=== PATIENT | female | born 1995 | race Caucasian/White ===

== ENCOUNTER 2020-05-09 16:27 | Outpatient (CLI) | payer OTHER, BC, SELFPAY ==
--- NOTE | ~2020-05-09 | US_ITS ---
EXAMINATION: US pelvic complete w TV DATE: 05/09/2020 17:09 INDICATION: Pelvic pain TECHNIQUE: Multiple transabdominal and endovaginal sonographic images of the pelvis were obtained. COMPARISON: None. FINDINGS: The uterus measures 7.4 x 2.9 x 4.5 cm. The endometrial complex measures 3 mm. The right ov ina measures 2.3 x 2.8 x 2.5 cm. The left ovary measures 2.4 x 2.0 x 0.9 cm. There is normal vascular flow in the ovaries. There is no free fluid in the pelvis. IMPRESSION: 1. No sonographic correlate for the patient's symptoms. Reviewed, dictated and finalized at location A. [employer]
== END 2020-05-09 16:28 | disposition home or self-care (01) ==
PROVIDERS: Visit Provider Obstetrics & Gynecology
DX: R10.2 Pelvic and perineal pain (principal)
CPT/HCPCS: 76830; 76856

== ENCOUNTER 2022-10-11 15:08 | Outpatient (CLI) | payer OTHER, SELFPAY ==
[2022-10-11 20:22] LABS: Thyroid Stimulating Hormone 0.838 uIU/mL (0.465-4.680)
== END 2022-10-11 15:09 | disposition home or self-care (01) ==
LOC: ANHGOSHLAB 15:09
PROVIDERS: PCP Family Medicine; Visit Provider Family Medicine
DX: R63.5 Abnormal weight gain (principal)
CPT/HCPCS: 36415; 84443

== ENCOUNTER 2024-08-25 09:24 | Outpatient (CLI) | payer BC, SELFPAY ==
--- OUTSIDE RECORDS SUMMARY | 2024-08-25 09:27 | XMS_ITS | Encounter Summary ---
Author Organization [facility] Address [address] [place] [address] Phone Care Team Providers Care Ruling Technician Name Role Phone Corby Chappell MD Primary Care Provider [phone] No, Physician Primary Care Provider [phone] Corby Chappell MD Unavailable [phone] Corby Chappell MD Primary Care Provider [phone] Encounter Details Date Type Department Care Team (Late st Contact Info) Description 09/04/2020 Orders Only [facility] Scanning, Provider Social History Tobacco Use Types Packs/Day Years Used Date Smoking Tobacco: Never Smokeless Tobacco: Never Alcohol Use Standard Drinks/Week Comments Yes 0 (1 standard drink = 0.6 oz pur e alcohol) occ AUDIT-C Answer Date Recorded Q1: How often do you have a drink containing alc ohol? 2-4 times a month 07/21/2020 Q2: How many drinks containi ng alcohol do you have on a typical day when you are drinking? 1 or 2 07/21/2020 Q3: How often do you have si x or more drinks on one occasion? Never 07/21/2020 Comments No Sex and Gender Information Value Date Recorded Sex Assigned at Not on file Legal Sex Female 4:17 AM [employer] LEAD[employer] Gender Identity Female 09/19/2019 3:42 PM CDT Sexual Orientation Not on file documented as of this encounter Plan of Treatment Not on file documented as of this encounter Procedures Procedure Name Priority Date/Time Associated Diagnosis Comments SCAN - LABS 09/04/2020 documented in this encounter Results * SCAN - LABS (09/04/2020) us Provider Scanning Final Result documented in this encounter Visit Diagnoses Not on filedocumented in this encounter Additional Health Concerns Infection Onset Date Last Indicated Resolved Time COVID: Suspected 05/23/2024 05/23/2024 05/23/2024 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
--- OUTSIDE RECORDS SUMMARY | 2024-08-25 09:27 | XMS_ITS | Referral Summary ---
Author Organization [facility] Address [address] [place] [address] Care Team Providers Care Beef Skinner Name Role Phone Corby Chappell MD Unavailable [phone] Corby Chappell MD Primary Care Provider [phone] Encounters Date Type Department Care Team Description 07/24/2024 10:15 AM CDT Office Visit [facility] [address] [facility] [address] [place] [address] Sonia Ronquillo NP Encounter for routine follow-up (Primary Dx) 07/16/2024 2:00 PM CDT Infusion [facility] [address] [facility] Advanced Medicine 5th [place] [address] [place] [phone] Ulcerative colitis with complication, unspecified location (HCC) (Primary Dx) 07/11/2024 11:11 PM CDT - 07/14/2024 1:12 PM CDT Hospital Encounter [facility] 1 [place] [phone] Xiao Lomax MD Gray-Swain, Margaret Rosanna, MD Encounter for induction of labor [Z34.90] (Primary Dx); Ulcerative colitis in remission (HCC) [K51.90]; Second degree perineal laceration [O70.1]; Vaginal delivery [O80] Discharge Disposition: Discharge to home or self care 07/13/2024 Telephone [facility] [address] [address] Federica Dalton MD 07/12/2024 7:36 AM CDT Anesthesia Event [facility] 1 [place] [address] Ambar Gan MD Rybak, Michael Robert, CRNA 07/10/2024 Telephone [facility] 1 [place] [address] Esther Conteh, MARIFER Outgoing Call (Pre procedure IOL call) 07/10/2024 7:28 AM CDT - 07/10/2024 9:35 AM CDT Hospital Encounter [facility] 1 [place] [address] Federica Dalton MD Discharge Disposition: Discharge to home or self care 07/03/2024 Documentation [facility] [address] [facility] [place] [facility] Medicine 12th [place] [address] [place] [address] Jyoti Blair, MARIFER Treatment Plan Update (07/03/2024 rov) 07/03/2024 10:30 AM CDT Office Visit [facility] [address] [facility] 12th [place] [address] [place] [address] Iesha Dunlap MD High risk medications (not anticoagulants) long-term use (Primary Dx); Ulcerative colitis with complication, unspecified location (HCC) 07/03/2024 8:00 AM CDT Procedure visit [facility] [address] [place] [phone] High-risk in third trimester (Primary Dx) 07/03/2024 8:30 AM CDT Routine [facility] [address] [place] [phone] Katelyn Razo, RECEIVING TANK OPERATOR Dr Dalton (Primary Dx) 06/29/2024 Results Follow-Up [address] [phone] Trisha Perry MD 06/26/2024 12:13 PM CDT - 06/26/2024 11:59 PM CDT Hospital Encounter [address] [address] [address] Dalton Discharge Disposition: Discharge to home or self care 06/26/2024 8:00 AM CDT Procedure visit [address] [phone] High risk medications (not anticoagulants) long-term use [Z79.899] (Primary Dx); Ulcerative colitis with complication, unspecified location (HCC) [K51.919] 06/26/2024 8:30 AM CDT Routine [address] [phone] Dalton (Primary Dx); Screening for genetic disease carrier status; High-risk in third trimester; High risk medications (not anticoagulants) long-term use; Anxiety disorder, unspecified type 06/19/[address] [phone] Federica Dalton MD 06/19/2024 8:00 AM SEARCH ENGINE MARKETING SPECIALIST Procedure visit [address] [phone] Obesity affecting in third trimester, unspecified obesity type [O99.213] (Primary Dx); Ulcerative pancolitis with complication (CMS/HCC) (HCC) [K51.019] 06/19/2024 8:15 AM SEARCH ENGINE MARKETING SPECIALIST Routine [address] [phone] Federica Dalton MD High-risk in third trimester (Primary Dx); Dr Dalton 06/06/2024 Orders Only [facility] [address] [facility] 12th [place] [address] [place] [address] Iesha Dunlap MD 06/05/2024 8:30 AM SEARCH ENGINE MARKETING SPECIALIST [facility]ine [facility] [address] [place] [address] [address] [place] [phone] Latasha Seaman NP care in third trimester (Primary Dx); Anxiety disorder due to known physiological condition; Ulcerative pancolitis without complication (CMS/HCC) (HCC) [K51.00] 06/04/2024 8:00 AM SEARCH ENGINE MARKETING SPECIALIST Clinical Support [address] [place] [phone] Anxiety disorder due to known physiological condition; Dr Dalton; High risk , antepartum; Ulcerative colitis with complication, unspecified location (HCC) 06/02/2024 10:21 PM SEARCH ENGINE MARKETING SPECIALIST - 06/03/2024 12:58 AM SEARCH ENGINE MARKETING SPECIALIST Hospital Encounter [facility] 1 [place] [address] Xiao Lomax MD Discharge Disposition: Discharge to home or self care 05/28/2024 12:15 PM SEARCH ENGINE MARKETING SPECIALIST Lab [facility] Met[facility] Lipid [address] [facility] 5th [place] [address] [place] [address] Ulcerative colitis with complication, unspecified location (HCC) [K51.919] (Primary Dx) 05/28/2024 9:00 AM SEARCH ENGINE MARKETING SPECIALIST Infusion [facility] [address] 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 chief -kaylan-boron 600 mg calcium- 800 unit-40 mg tablet,chewable Take 1 tablet/chew tab by mouth daily OTC Active PNV with jxkavhn-fmnj-FT 27 mg iron- 1 mg tablet Take 1 tablet by mouth daily 08/21/19 22 Active cholecalciferol (VITAMIN D-3) 2000 unit capsule Take 1 capsule (2,000 Units total) by mouth daily 90 capsule 3 09/17/19 23 Active promethazine (PHENERGAN) 25 mg tablet Take 1 tablet (25 mg total) by mouth every 6 (six) hours as needed for nausea 30 tablet 1 12/08/19 24 Active Additional Information Patient not taking.Reported on 07/24/2024 aspirin 81 mg enteric coated tablet Take 1 tablet (81 mg total) by mouth daily 30 tablet 11 12/27/19 24 025 Active Additional Information Patient not taking.Reported on 07/24/2024 ondansetron ODT (ZOFRAN-ODT) 8 mg disintegrating tablet Take 1 tablet (8 mg total) by mouth every 8 (eight) hours as needed for nausea 20 tablet 1 05/23/19 25 Active Additional Information Patient not taking.Reported on 07/24/2024 sertraline (ZOLOFT) 100 mg tabletIndications: Generalized Anxiety Disorder Take 1 tablet (100 mg total) by mouth daily 90 tablet 1 05/24/19 25 Active famotidine (PEPCID) 20 mg tablet Take 1 tablet (20 mg total) by mouth 2 (two) times a day 60 tablet 11 05/24/19 25 026 Active Additional Information Patient not taking.Reported on 07/24/2024 acetaminophen 500 mg capsuleIndications :Pain Take 2 capsules (1,000 mg total) by mouth every 6 (six) hours 60 tablet 3 07/15/19 25 Active gabapentin (NEURONTIN) 300 mg capsule Take 1 capsule (300 mg total) by mouth 3 (three) times a day 60 capsule 3 07/15/19 25 025 Active Additional Information Patient not taking.Reported on 07/24/2024 polyethylene glycol (MIRALAX) 17 gram/dose bulk powderIndications: constipation Take 17 g by mouth daily 517 g 07/15/19 25 Active mesalamine (LIALDA) 1.2 gram EC tabletIndications: Ulcerative Colitis Take 4 tablets (4.8 g total) by mouth daily 120 tablet 2 08/24/19 25 Active mesalamine (LIALDA) 1.2 gram EC tabletIndications: Ulcerative Colitis Take 4 tablets (4.8 g total) by mouth daily 120 tablet 11 11/21/19 24 025 Discontin ued(Reord er) Active Problems Problem Noted Date Diagnosed Date Encounter for routine follow-up 07/12 Overview (07/14/2024): # ID: Afebrile. No signs/symptoms of infection. #VZV unknown: PNR with report of chickenpox as a child # Heme: EBL 150 mL. Hemodynamically stable. Blood consent obtained # CV/Pulm: Vital signs stable, within normal limits. # GI/: Tolerating PO. Voiding spontaneously. #Ulcerative colitis - extensive (E3), had EBV in 2012. Current regimen - Entyvio every 8 weeks (started 03/2018) , mesalamine (restarted November 2023). No prior abdominal surgeries. Colonoscopy 11/2022 with 5 hyperplastic polyps removed. Avoid NSAIDs PP. # Psych #anxiety- zoloft increased to 100mg daily in 3T, mood otherwise stable. Doing well PPD2, good mood. # Pain: Controlled with above regimen. # MOC: To discuss at pp visit . # MOF: . Urine drug screen not indicated. Patient informed of results: N/A. # Post DVT prophylaxis: The patient has the following MAJOR risk factors none and the following MINOR risk factors BMI 30-39. SCDs ordered for VTE prophylaxis. # Disposition: Follow up task not sent. Continue routine care. Service Coverage These phones are service phones and carried 08/11 in house: R1 (first call) [phone] R1 alt (second call) [phone] R4 (Chief) [phone] Second degree perineal laceration 07/12/2024 Vaginal delivery 07/12/2024 Ulcerative colitis in remission 07/12/2024 Encounter for induction of labor 07/11/2024 Overview (07/12/2024): Olga Maloney is a 29 y.o. female at 39w0d who is dated by L=1 and is being admitted for an elective induction of labor. Admit to L&D: Labs: CBC and T&S pending. Induction of labor with misoprostol and CC . FWB: Continuous monitoring. Reactive NST. ID: 3rd trimester HIV (>28 wga) negative on 04/17/24. GBS negative on 06/26/24 . RPR on admission: pending. History of genital HSV or HSV 1/2 seropositivity: No. Membrane Status: intact. Indications for UDS: none. Verbal consent obtained for UDS: Not indicated. MOF: Plans to breastfeed. Urine drug screen not indicated. Patient informed of results: N/A. MOC: Undecided on contraception after counseling. Will reassess at 6wk visit Pain management: Desires epidural. Post DVT prophylaxis: The patient has the following MAJOR risk factors active inflammatory bowel disease and the following MINOR risk factors BMI 30-39 and parity >/=3. enoxaparin 40 mg daily will be ordered for VTE prophylaxis . Other: #anxiety- zoloft increased to 100mg daily in 3T, mood otherwise stable. For peds at delivery for SSRI #Ulcerative colitis - extensive (E3), had EBV in 2012. Current regimen - Entyvio every 8 weeks (started 03/2018) , mesalamine (restarted November 2023). No prior abdominal surgeries. Colonoscopy 11/2022 with 5 hyperplastic polyps removed. Diarrhea of infectious origin 05/23/2024 Screening for genetic disease carrier status Overview (01/09/2024): REPORT SUMMARY Negative Comment: Negative for 4 out of 4 diseases. CYSTIC FIBROSIS Negative DUCHENNE/SOLO MUSCULAR DYSTROPHY Negative FRAGILE X SYNDROME Negative Comment: NEGATIVE Fragile X Syndrome results 30 and 30 CGG repeats were detected in the FMR1 genes. SPINAL MUSCULAR ATROPHY Negative Comment: NEGATIVE Spinal Muscular Atrophy (SMA) Results SMN1: Two copies; [id number].[id number]>G: absent; the absence of the g.62662Q>G variant decreases the chance to be a silent (2+0) carrier. Dr Dalton 12/28/2023 Overview (06/19/2024): Initial Labs: Lab Results Component Value Date ABORH O Positive 12/28/2023 IDCOOMB Negative 12/28/2023 [id number] Nonreactive 12/28/2023 LABRPR Nonreactive 12/28/2023 RUBELIGG Reactive 12/28/2023 Lab Results Component Value Date HEPBSAG Nonreactive 12/28/2023 HEPCAB Nonreactive 12/28/2023 Lab Results Component Value Date WBC 13.8 (H) 12/28/2023 HGB 12.6 12/28/2023 HCT 39.1 12/28/2023 MCV 91.6 12/28/2023 LABPLAT 261 12/28/2023 Urine culture( x ) Carrier Screening offered (x ) Horizon 4 sent Aneuploidy screening counseling and testing offered (x ):NIPT sent: LR XX/rgs Midtrimester Labs Lab Results Component Value Date [id number] 106 04/17/2024 Lab Results Component Value Date HGB 11.7 (L) 04/16/2024 LABPLAT 218 04/16/2024 Lab Results Component Value Date [id number] Nonreactive 04/17/2024 LABRPR Nonreactive 04/17/2024 Lab Results Component Value Date WBC 8.9 05/24/2024 HGB 12.0 05/24/2024 HCT 37.8 05/24/2024 MCV 92.9 05/24/2024 LABPLAT 213 05/24/2024 Lab Results Component Value Date TSH 1.27 05/24/2024 ulcerative colitis in : WEOB RGS 2023 Overview (05/24/2024): Year of diagnosis: 2011. Year symptoms began: 2011. Distribution: Extensive (E3). Extraintestinal manifestations: none. Complications: EBV in 2012 Prior treatments: 5ASA.mercaptopurine, AZA-EBV in 2012 Current treatment: Entyvio every 8 weeks (started 03/2018) , mesalamine. Prior surgeries: none. Endoscopies: Colonoscopy 11/2022 .Normal mucosa in the entire examined colon. Chromoscopy performed. - Five small polyps in the sigmoid colon, removed with a cold biopsy forceps. Resected and retrieved. PATH: Sigmoid colon, polyps, polypectomies: - Hyperplastic polyps Colonoscopy 11/2021 Normal mucosa in the entire examined colon. Chromoscopy performed. - No specimens collected. Flex sig 2020 The entire examined colon is normal. - No specimens collected Colonoscopy 10/2018 Normal mucosa in the entire examined colon. - The examined portion of the ileum was normal. - The distal rectum and anal verge are normal on retroflexion view. - No specimens collected. The patient had a colonoscopy done in 2012 while on Apriso that demonstrated patchy disease activity, and ultimately in November 2014, she was transitioned back to mercaptopurine. The patient had a normal MRE in February 2015, and a colonoscopy in 2016 demonstrated mucosal remission. MRI 2014 Normal MR enterography without evidence of inflammation . flare and add in mesalamine Initial additional labs - ordered 01/24/24: ( x) B12 ( ) Vit D ( )folate ( )ferritin ( )CMP Lab Results Component Value Date VITB12 301 01/24/2024 IRON 68 04/16/2024 IRON 97 04/13/2023 TIBC 369 04/16/2024 TIBC 256 04/13/2023 FOLATE >20.0 04/17/2024 FOLATE >20.0 01/24/2024 25HYDROVITD 40 01/24/2024 25HYDROVITD 45 11/27/2019 25HYDROVITD 47 10/04/2019 FERRITIN 13.4 04/16/2024 FERRITIN 55 01/24/2024 FERRITIN 46.4 04/13/2023 FERRITIN 3375 (H) 02/17/2013 Lab Results Component Value Date IRON 38 05/24/2024 TIBC 254 05/24/2024 FERRITIN 46 05/24/2024 qtrimester repeat B12, ferritin, folate and vit D levels ( x) second tri ( x ) third tri Imaging/ surveillence (x) 11-13 dating/viability scan (first look if indicated) ( x ) level 2 anatomy scan 19-21 weeks - ordered ( x ) serial growth scans q4 weeks starting at 26 weeks ( ) NST 2 per week start at 32-36 weeks if FGR Consults: ( ) MFM ( ) nutrition if poor weight gain Delivery: 39 weeks Counseling tips: Outcomes are best if disease in remission for 6 months prior to conception. If active disease at time of conception there is are increased risks for flare, spontaneous , delivery, growth restriction and demise. For UC if active disease at conception 45% have a flare in , 24% stable and 25% improve. If Crohn's 1/3 have flare, 1/3 are stable and 1/3 improve. If and on 6-MP/azathioprine should wait 4 hours after dose to minimize exposure Share with pt: https://mothertobaby.org/pjpgtkpuh-aennsiyrscpli-mzakvfubf/grtbrauvwznt-tfefr-ks sease / Anxiety disorder 06/06/2023 Overview (05/24/2024): Zoloft in preg. Here is some useful information about sertraline use in : https://motherApaja.org/fact-sheets/ywomqdokma-rvmupb-sjkhtnvdu/ 05/24/24 05/24/24 increase zoloft [id number] to 100mg GAD7 sent today and for 2 week repeat Lab Results Component Value Date TSH 1.27 05/24/2024 High risk medications (not anticoagulants) long- term use 01/11/2018 Assessment & Plan (01/07/2024 6:59 AM CDT): The patient is encouraged to continue Entyvio through and Ulcerative colitis 09/13/2012 Overview (01/07/2024): Year of diagnosis: 2011. Year symptoms began: 2011. Distribution: Extensive (E3). Extraintestinal manifestations: none. Complications: EBV in 2012 Prior treatments: 5ASA.mercaptopurine, AZA-EBV in 2012 Current treatment: Entyvio every 8 weeks (started 03/2018) , mesalamine (restarted November 2023). TDM: vedo 13.9, on Q8W Prior surgeries: none. Endoscopies: Colonoscopy 11/2022 .Normal mucosa in the entire examined colon. Chromoscopy performed. - Five small polyps in the sigmoid colon, removed with a cold biopsy forceps. Resected and retrieved. PATH: Sigmoid colon, polyps, polypectomies: - Hyperplastic polyps Colonoscopy 11/2021 Normal mucosa in the entire examined colon. Chromoscopy performed. - No specimens collected. Flex sig 2020 The entire examined colon is normal. - No specimens collected Colonoscopy 10/2018 Normal mucosa in the entire examined colon. - The examined portion of the ileum was normal. - The distal rectum and anal verge are normal on retroflexion view. - No specimens collected. The patient had a colonoscopy done in 2012 while on Apriso that demonstrated patchy disease activity, and ultimately in November 2014, she was transitioned back to mercaptopurine. The patient had a normal MRE in February 2015, and a colonoscopy in 2016 demonstrated mucosal remission. Imaging: MRI 2014 Normal MR enterography without evidence of inflammation . Assessment & Plan (01/07/2024 7:00 AM CDT): The patient is doing in her early 2nd trimester. Her recent calprotectin was reassuring. Her trough level is low. To prevent flare due to low levels, Dr. Dunlap would like to shorten her interval. The patient believes monthly infusions would be very inconvenient and would prefer to try every 6 week infusions 1st. We will submit for this. We will continue to monitor her labs. If she develops increased symptoms during , we will repeat her calprotectin We will likely repeat her colonoscopy for surveillance after delivery in 2024 Assessment & Plan (04/27/2021 2:42 PM SEARCH ENGINE MARKETING SPECIALIST): Ulcerative pancolitis, with symptoms that began in 2011 with left lower quadrant pain, diarrhea, and hematochezia. The patient had evidence of gerber-colitis with sparing of the terminal ileum and was initially treated with Apriso with persistent disease. Eventually, azathioprine was added in October 2012, but the patient subsequently was admitted with acute EBV infection in January 2013 and was then transitioned back to Apriso, but then had multiple flares on monotherapy with Apriso requiring prednisone as well as Uceris. The patient had a colonoscopy done in 2012 while on Apriso that demonstrated patchy disease activity, and ultimately in November 2014, she was transitioned back to mercaptopurine. The patient had a normal MRE in February 2015, and a colonoscopy in 2016 demonstrated mucosal remission. 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 She had a repeat flexible sigmoidoscopy on 07/21/2020 that was consistent with remission. Her Entyvio trough level on 12/25/2020 was adequate at 15 Resolved Problems Problem Noted Date Diagnosed Date Resolved Date Bleeding in early /PUL 09/13/2023 12/08/2023 Overview (09/13/2023): 09/13/23 ultrasound: Indication: bleeding in early , SAB Exam: Transvaginal Uterine position: Retroverted GA by lmp 07/28/23 6w5d MAURICIO 05/03/23 Uterus size in cm: 6.4 x 4.2 x 5.1 Endometrium in mm: 7.9 Right Ovary size in cm: 3.5 x 2.3 x 1.6 Cyst present: hemorrhagic appearing Size of cyst in mm: 20 x 11 x 16 Left Ovary size in cm: 3 x 1.3 x 0.9 Free Fluid: no Terminal Make Up Operator impression: No evidence of IUP seen on today's exam. Uterus and ovaries appear normal. Adnexa is unremarkable. No free fluid seen. Serial HCGs pending IUD contraception 06/30/2021 05/04/2022 Overview (06/30/2021): Seanena -2021 High risk medication use 08/17/201611/2023 Immunizations Immunization Administration Dates Next Due Influenza, Quadrivalent, Daija l Culture-based MDCK, Preservative Free, Antibiotic Free, Intramuscular 03/10/2022,01/25/2019 Influenza, Quadrivalent, Spl it, Preservative Free, Intramuscular 01/17/2021,12/31/2019,01/19/2018,12/09,01/08/2017 Influenza, Trivalent, Preser vative Free, Intramuscular 02/23/2024,01/29/2014,04/03/2013 MMR 01/08/2017 PPD TEST 01/12/2018 Pfizer SARS-CoV-2 Monovalent Vaccination (12+ Yrs) VAZQUEZ-READY TO USE 08/20/2021 Pfizer Sars-Cov-2 Bivalent V accination (12+ YRS) 12/13/2022 Pneumococcal Conjugate PCV 13 08/18/2016 Pneumococcal Polysaccharide PPV23 07/08/2017 Tdap 05/08/2024 ZOSTER Recombinant 06/29/2022,03/10/2022 Social History Tobacco Use Types Packs/Day Years Used Date Smoking Tobacco: Never Smokeless Tobacco: Never Alcohol Use Standard Drinks/Week Comments Yes 0 (1 standard drink = 0.6 oz pur e alcohol) occ Social Connection and Isolat ion Panel [NHANES] Answer Date Recorded In a typical week, how many times do you talk on the phone with family, friends, or neighbors? More than three times a week 07/13/2024 How often do you get togethe r with friends or relatives? More than three times a week 07/13/2024 How often do you attend chur ch or yazdanism services? 1 to 4 times per year 07/13/2024 Do you belong to any clubs o r organizations such as confucianist groups, unions, fraternal or athletic groups, or school groups? Yes 07/13/2024 How often do you attend meet ings of the clubs or organizations you belong to? More than 4 times per year 07/13/2024 Are you , , di vorced, , never , or living with a partner? 07/13/2024 AUDIT-C Answer Date Recorded Q1: How often do you have a drink containing alc ohol? Never 05/24/2024 Average Number of Drinks Not on file 025 Q3: How often do you have si x or more drinks on one occasion? Less than monthly 05/24/2024 Overall Financial Resource Strain (CARDIA) Answe r Date Recorded How hard is it for you to pa y for the very basics like food, housing, medical care, and heating? Not very hard 07/13/2024 [facility] ional [facility] - Occupational Stress Questionnaire Answer Date Recorded Do you feel stress - tense, restless, nervous, or anxious, or unable to sleep at night because your mind is troubled all the time - these days? To some extent 07/10/2024 Hunger Vital Sign Answer Date Recorded Within the past 12 months, y ou worried that your food would run out before you got the money to buy more. Never true 07/14/19 25 Within the past 12 months, t he food you bought just didn't last and you didn't have money to get more. Never true 07/13/2024 PRAPARE - Transportation Answer Date Re corded In the past 12 months, has l ack of transportation kept you from medical appointments or from getting medications? No 06/17 In the past 12 months, has l ack of transportation kept you from meetings, work, or from getting things needed for daily living? No 07/13/2024 [place] Depression Scale Answer Date Recorded [place] Depression Scale Total 10 07/24/2024 The thought of harming myself has occurred to me . Never 07/24/2024 Housing Stability Vital Sign Answer Victor Hugo e Recorded In the last 12 months, was t here a time when you were not able to pay the mortgage or rent on time? No 07/13/2024 In the past 12 months, how m any times have you moved where you were living? 1 07/13/2024 At any time in the past 12 m [facility], were you homeless or living in a custodial (including now)? No 07/13/2024 Personal Safety Answer Date Recorded Have you ever been in or are you currently in a harmful physical or emotional relationship or is someone making you feel afraid or unsafe? 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 Not on file Not on file Not on file Last Filed Vital Signs Vital Sign Reading Time Taken Comments Blood Pressure 118/70 07/24/2024 10:16 AM CDT Pulse 85 07/16/2024 2:07 PM CDT Temperature 36.4 C (97.5 F) 07/14/2024 8:02 AM CDT Respiratory Rate 16 07/16/2024 2:07 PM CDT Oxygen Saturation 99% 07/14/2024 8:02 AM CDT Inhaled Oxygen Concentration - - Weight 95.2 kg (209 lb 12.8 oz) 025 10:16 AM CDT Height 162.6 cm (5' 4 ) 07/24/2024 10:1 6 AM CDT Body Mass Index 36.01 07/24/2024 10:16 AM CDT Plan of Treatment Not on file Procedures Procedure Name Priority Date/Time Associated Diagnosis Comments SURGICAL PATHOLOGY Routine 07/12/2024 2: 22 PM CDT DC AN PROCEDURE PLACEHOLDER Routine 07/12/2024 8:02 AM CDT EGFR STAT 07/12/2024 12:45 AM CDT BASIC METABOLIC PANEL STAT 07/12/2024 12:45 AM CDT CBC WITHOUT DIFFERENTIAL STAT 07/12/2024 12:45 AM CDT TYPE AND SCREEN STAT 07/12/2024 12:45 AM CDT HIV 1/2 ANTIBODY PLUS P24 ANTIGEN Routine 07/12/2024 12:45 AM CDT RPR STAT 07/12/2024 12:45 AM CDT POCT FERN TEST, VAGINAL FLUID [facility] Routine 07/10/2024 8:50 AM CDT POCT URINALYSIS (CLINITEK) Routine 07/10/2024 7:42 AM CDT GROUP B STREPTOCOCCUS CULTURE Routine 06/26/2024 12:[address] Dalton OB FOLLOW UP Schedule Routine, Read Routine (OP Routine) 06/04/2024 8:27 AM SEARCH ENGINE MARKETING SPECIALIST Anxiety disorder due to known physiological condition Dr Dalton High risk , antepartum Ulcerative colitis with complication, unspecified location (HCC) POCT URINALYSIS (CLINITEK) Routine 06/02/2024 11:13 PM SEARCH ENGINE MARKETING SPECIALIST CRP (ACUTE PHASE) Routine 05/28/2024 9:2 1 AM SEARCH ENGINE MARKETING SPECIALIST Ulcerative colitis with complication, unspecified location (HCC) COMPREHENSIVE METABOLIC PANEL Routine 05/28/2024 9:21 AM SEARCH ENGINE MARKETING SPECIALIST Ulcerative colitis with complication, unspecified location (HCC) CBC WITH AUTO DIFFERENTIAL Routine 05/28/2024 9:21 AM SEARCH ENGINE MARKETING SPECIALIST Ulcerative colitis with complication, unspecified location (HCC) HEPATITIS C ANTIBODY Routine 12/28/2023 10:22 AM CDT Encounter for supervision of normal , antepartum, unspecified PAP WITH REFLEX TO HIGH RISK HPV Routine 04/27/2021 3:23 PM SEARCH ENGINE MARKETING SPECIALIST from Last 3 Months or Most Recently Relevant to Health Maintenance Results * Surgical pathology (07/12/2024 2:22 PM CDT) Tissue specimen (specimen) (Placenta) 07/12/2024 2:22 PM CDT 07/13/2024 8:45 AM CDT Narrative PATHOLOGY [facility] - 07/18/2024 1:52 PM CDT EPIC results best viewed via link to PDF [facility] [place] [address] Note to Patients: This report may contain a detailed description of human tissue sent by a health care provider to the laboratory for pathologic evaluation. The content of this report is essential for diagnosis and may provide important critical findings. This information may be unfamiliar to patients to review without a medical professional present. It is advised that the patient review this report in the presence of a health care provider who can answer questions and explain the details. SURGICAL PATHOLOGY REPORT FINAL Patient Name: OLGA MALONEY Gender: F : 1995 (Age: 29) Address: [address] [place] [id number] Hospital #: [id number] Taken:07/12/2024 Received:07/13/2024 Reported: 07/18/2024 Patient Type: [facility] Inpatient Service: Obstetrics Location: [place] [address] Physician(s): DO Federica Crandall M.D. Raymond K. Weber, M.D. Diagnosis: Placenta, vaginal delivery - 417.6 g at 39w0d gestation (appropriate for gestational age) - Trivascular cord and membranes with no histopathologic abnormalities - Villous morphology consistent with stated gestational age [facility]07/18/2024 13:37 By this signature, I attest that the above diagnosis is based upon my personal examination of the slides(and/or other material indicated in the diagnosis). Dash Bowen M.D. Report Electronically Reviewed and Signed Out By Dash Bowen M.D. 07/18/2024 13:52:49 Alondra Randall M.D. History: The patient is a 29 year-old female at 39w0d gestation who presents for an elective induction of labor. Operative procedure: spontaneous vaginal delivery Specimen(s) Received: A: Placenta, third trimester Gross Description: Received in formalin, labeled with the patient s identifiers and Placenta - Dimensions: 417.6 g, 16.7 x 11.6 x 1.9 cm - Membranes: Thin, semitranslucent and nava - Membrane insertion: Marginal - Cord: Attached 25.5 cm in length x 1.2 cm in diameter segment. Detached 24.5 cm in length x 1.3 cm in diameter segment Three vessels Eccentric, 4.0 cm from closest disc margin There are no knots or other lesions - Surface: Blue-vazquez and wrinkled with normal arborization of vessels - Maternal Surface: Intact, red to brown nava with loosely adherent clots - Cut surface: Spongy, red-nava parenchyma with no distinct lesions Summary of sections: A1 membranes and umbilical cord A2-A4 placental disc Jar: 3 [facility]07/16/2024 15:18 Gross Resident:Alondra Randall M.D. PA(s): Cale Rojas M.D. By this signature, I attest that the above diagnosis is based upon my personal examination of the slides(and/or other material). Addenda/Procedures The performance characteristics of some immunohistochemical stains, fluorescence in-situ hybridization tests and immunophenotyping by flow cytometry cited in this report (if any) were determined by the Surgical Pathology and Flow Cytometry Departments at [facility] as part of an ongoing quality assurance clerk program and in compliance with federally mandated regulations drawn from the Clinical Laboratory Improvement Act of 1988 (CLIA '88). Some of these tests rely on the use of analyte specific reagents and are subject to specific labeling requirements by the US Food and Drug Administration. Such diagnostic tests may only be performed in a facility that is certified by the Department of Health and Human Services as a high complexity laboratory under CLIA '88. The FDA has determined that such clearance or approval is not necessary. This test is used for clinical purposes. It should not be regarded as investigational or for research. Nevertheless, federal rules concerning the medical use of analyte specific reagents require that the following disclaimer be attached to the report: This test was developed and its performance characteristics determined by the Surgical Pathology and Flow Cytometry Departments of [facility]. It has not been cleared or approved by the U. S. Food and Drug Administration. IMAGES AND SCANNED DOCUMENTS, IF INCLUDED, ONLY VIEWABLE IN PDF VERSION OF REPORT us Federica Dalton MD LAB PATHOLOGY ORD ERABLES Final Result PATHOLOGY [facility] 3rd Floor [place], [place] [phone] * DC AN PROCEDURE PLACEHOLDER (07/12/2024 8:02 AM CDT) Narrative Brain Keita CRNA - 07/12/2024 8:02 AM CDT Brain Keita CRNA 07/12/2024 8:02 AM Epidural Block Patient location: L&D Reason for block: labor analgesia Staff: Supervising provider: Ambar Gan MD Placed by: CLIENT ENGAGEMENT SPECIALIST: Brain Keita CRNA Procedure prep: Preprocedure checklist: patient identified, procedure contraindications assessed, procedure consent obtained, IV checked, risks, benefits and alternatives discussed, monitors and equipment checked and timeout performed Patient Position: sitting Procedure performed while patient: awake Monitoring: oximetry and blood pressure Prep solution: chlorhexadine/alcohol PPE: provider hat/mask, sterile gloves and sterile drape Skin infiltrated with lidocaine 1%: yes Epidural: Approach: midline Imaging guidance used: no Location: L4-5 Number of attempts:1 Epidural needle: Injection technique: JACK saline Needle type: Tuohy Needle gauge: 17 G Needle length: 9 cm Loss of resistance: 7 cm Catheter: Catheter type: multi-orifice. Catheter at skin depth: 12 cm Negative aspiration of blood: no Negative aspiration of CSF: no Test dose: negative Assessment: Sensory level - left: full eval pending Sensory level - right: full eval pending Events: patient tolerated procedure well with no complications us Ambar Gan MD ANESTHESIA ORDERABLES Carrie l Result * eGFR (07/12/2024 12:45 AM CDT) eGFR >90 >=60 mL/min/1. 73 m2 Comment: Interpretive Data Reference Interval Normal >/= 90 mL/min/1.73m2 Mildly decreased* 60 - 89 mL/min/1.73m2 Mildly to moderately decreased 45 - 59 mL/min/1.73m2 Moderately to severely decreased 30 - 44 mL/min/1.73m2 Severely decreased 15 - 29 mL/min/1.73m2 Kidney Failure < 15 mL/min/1.73m2 *Relative to young adult level Estimated glomerular filtration rate is determined by the 2020 CKD-EPI equation recommended by the National Kidney Foundation (A Unifying Approach to GFR Estimation: Recommendations of the NKF-ASK Task Force on Reassessing the Inclusion of Race in Diagnosing Kidney Disease, JASN 2020). The CKD-EPI equation should not be used for patients with unstable renal function and has not been validated in children and those over 70. Current interpretive data was last reviewed 2021. Blood 07/12/2024 12:4 5 AM CDT 07/12/2024 1:02 AM CDT us Xiao Lomax MD LAB BLOOD ORDERABLES Final Result [facility] Department [place] [address] * HIV 1/2 Antibody plus p24 Antigen Blood (07/12/2024 12:45 AM CDT) HIV 1/2 ab + p24 ag Nonreactive Nonreactive Comment:Nonreactive for HIV- 1 antigen and HIV-1/HIV-2 antibodies. No laboratory evidence of HIV infection. If acute HIV infection is suspected, consider testing for HIV-1 RNA. Current interpretive data was last revised on 21. Blood 07/12/2024 12:4 5 AM CDT 07/12/2024 1:03 AM CDT Xiao Lomax MD LAB MICROBIOLOGY - GENERAL ORDERABLES Final Result Performing Organization Address [facility] de Phone Number [facility] [place] [address] * RPR Blood (07/12/2024 12:45 AM CDT) [facility] RPR Nonreactive Nonreactive Blood 07/12/2024 12:4 5 AM CDT 07/12/2024 1:02 AM CDT Xiao Lomax MD LAB MICROBIOLOGY - GENERAL ORDERABLES Final Result Performing Organization Address [facility] de Phone Number [facility] [place] [address] * (ABNORMAL) CBC without differential (07/12/2024 12:45 AM CDT) [facility] WBC 14.0(H) 3.8 - 9.9 K/cumm Hgb 11.7(L) 11.9 - 15.5 g/dL [facility] Hct 35.5(L) 35.6 - 45.5 % [facility] Plt 200 150 - 400 K/cumm [facility] MPV 11.5 9.1 - 12.3 fL [facility] RBC 4.02 3.90 - 5.20 M/cumm [facility] MCV 88.3 81.3 - 96.4 fL [facility] MCH 29.1 27.1 - 33.3 pg [facility] MCHC 33.0 32.3 - 35.7 g/dL [facility] RDW CV 14.6 11.1 - 14.9 % [facility] RDW SD 46.9 35.7 - 48.1 fL [facility] NRBC abs 0.00 0.00 - 0.01 K/cumm [facility] Blood 07/12/2024 12:4 5 AM CDT 07/12/2024 1:02 AM CDT Xiao Lomax MD LAB BLOOD ORDERABLES Final Result Performing Organization Address [facility] Co de Phone Number [facility] [employer] [place] [address] * Type and screen (07/12/2024 12:45 AM CDT) ABO Rh O Positive Deo, indirect Negative [facility] Blood 07/12/2024 12:4 5 AM CDT 07/12/2024 1:02 AM CDT Narrative [facility] - 07/12/2024 1:57 AM CDT Has the patient had Daratumumab or Isatuximab in the past 6 months?->Unknown Xiao Lomax MD LAB BLOOD BANK TEST ORDERA BLES Final Result Performing Organization Address [facility] [place] [address] * (ABNORMAL) Basic metabolic panel (07/12/2024 12:45 AM CDT) Sodium 136 135 - 145 mmol/L Potassium, pl 4.1 3.3 - 4.9 mmol/L [facility] Chloride 104 97 - 110 mmol/L [facility] CO2 22 22 - 32 mmol/L [facility] Anion gap 10 2 - 15 mmol/L [facility] BUN 11 6 - 25 mg/dL [facility] Creatinine 0.54(L) 0.60 - 1.10 mg/dL [facility] Glucose 89 70 - 199 mg/dL [facility] Comment: Interpretive Data Fasting glucose >/= 126 mg/dl is diagnostic for diabetes. Fasting is defined as no caloric intake for at least 8 hours. Fasting glucose between 100 mg/dl to 125 mg/dl is diagnostic of prediabetes. In a patient with classic symptoms of hyperglycemia or hyperglycemic crisis, a random glucose >/= 200 mg/dl is diagnostic for diabetes. In the absence of unequivocal hyperglycemia, results should be confirmed by repeat testing. The classification and Diagnosis of Diabetes Diabetes Care 2021; 46: S19-S40. Current interpretive data was last revised 2022. Calcium 9.5 8.5 - 10.3 mg/dL [facility] Blood 07/12/2024 12:4 5 AM CDT 07/12/2024 1:02 AM CDT us Xiao Lomax MD LAB BLOOD ORDERABLES Final Result [facility] Department [place] [address] * POCT Fern test, vaginal fluid (07/10/2024 8:50 AM CDT) Fern Test, POC Ferning Absent Ferning Absent Vaginal fluid 07/10/2024 8:5 0 AM CDT us Maria Fernanda Arenas NP POINT OF CARE TEST ORDERA BLES Final Result * (ABNORMAL) POCT urinalysis (Clinitek) (07/10/2024 7:42 AM CDT) Color, ur, POC Yellow Yellow Clarity, UA, POC Clear Clear [facility] Glucose, ur, POC Negative Negative [facility] Bilirubin, ur, POC Negative Negative [facility] Ketones, ur, POC Negative Negative [facility] Specific gravity, ur, POC 1.015 1.010 - 1.025 [facility] Blood, ur, POC Negative Negative [facility] pH, ur, POC 6.5 [facility] Comment: Interpretive Data Urine pH is affected by diet, medications, systemic acid-base disturbances, and renal tubular function. pH may affect urinary stone formation. For example, urine pH below 6.0 may help reduce the tendency for calcium phosphate stones and pH greater than 6.0 may reduce the tendency for uric acid stone formation. Source: [facility]. Last Revised Date: 04-28-2017 Protein, ur, POC Negative Negative [facility] Urobilinogen, ur, POC 0.2 mg/dL mg/dL [facility] Nitrites, ur, POC Negative Negative [facility] Leukocyte esterase, ur, POC 1+(A) Negative [facility] Urine 07/10/2024 7:42 AM CDT 07/10/2024 7:42 AM CDT Federica Dalton MD LAB POCT ORDERABL ES - DEVICE Final Result [facility] Department [place] [address] * Group B streptococcal culture Vaginal/Rectal (06/26/2024 12:31 PM CDT) Report Final Report: Negative Vaginal/Rectal 06/26/2024 12 :31 PM CDT 06/26/2024 1:02 PM CDT Narrative [facility] - 06/29/2024 8:20 AM CDT Testing performed by [facility] ([phone]). Trisha Perry MD LAB MICROBIOLOGY - GENERA L ORDERABLES Final Result Performing Organization Address City/[facility]/ZIP Co de Phone Number [facility] Department [place] [address] * US Ob Follow Up (06/04/2024 8:27 AM SEARCH ENGINE MARKETING SPECIALIST) Amniotic fld 14.9 cm Heart Rate 138 bpm Femur Length 6.75 cm Abdominal Circumference 28.81 cm Head Circumference 31.2 cm Occipitofrontal diameter 11.03 cm Biparietal Diameter 8.45 cm Anatomical Region Laterality Modality Abdomen N/A Ultrasound Narrative 06/04/2024 12:16 PM SEARCH ENGINE MARKETING SPECIALIST Indication: growth , ulcerative colitis Exam: Transabdominal number: 1 position: vertex Placenta location: posterior YUDY: 14.9 cm GA: 33w5d MAURICIO 07/18/24 EFW today: 2255g (5lb0oz) 42%ile AC: 27%ile GA: 34w1d MAURICIO Impression Single vertex 33.5 week fetus. AGA growth patterns. Normal YUDY Limited views of the stomach, kidneys, bladder and diaphragm were visualized and appear normal. Federica Dalton MD us Federica Dalton MD IMG OB US PROCEDU RES Edited Result - Final * (ABNORMAL) POCT urinalysis (Clinitek) (06/02/2024 11:13 PM SEARCH ENGINE MARKETING SPECIALIST) Color, ur, POC Light yellow Clarity, UA, POC Cloudy(A) Clear [facility] Glucose, ur, POC Negative Negative [facility] Bilirubin, ur, POC Negative Negative [facility] Ketones, ur, POC Negative Negative [facility] Specific gravity, ur, POC 1.010 1.010 - 1.025 [facility] Blood, ur, POC Negative Negative [facility] pH, ur, POC 6.0 [facility] Comment: Interpretive Data Urine pH is affected by diet, medications, systemic acid-base disturbances, and renal tubular function. pH may affect urinary stone formation. For example, urine pH below 6.0 may help reduce the tendency for calcium phosphate stones and pH greater than 6.0 may reduce the tendency for uric acid stone formation. Source: [facility]. Last Revised Date: 04-28-2017 Protein, ur, POC Negative Negative [facility] Urobilinogen, ur, POC 0.2 mg/dL mg/dL [facility] Nitrites, ur, POC Negative Negative [facility] Leukocyte esterase, ur, POC 1+(A) Negative [facility] Urine 06/02/2024 11:1 3 PM SEARCH ENGINE MARKETING SPECIALIST 06/02/2024 11:13 PM SEARCH ENGINE MARKETING SPECIALIST us Xiao Lomax MD LAB POCT ORDERABLES - JAVIER CE Final Result [facility] Department [place] [address] * (ABNORMAL) CBC with auto differential (05/28/2024 9:21 AM SEARCH ENGINE MARKETING SPECIALIST) White Blood Count 12.1(H) 3.6 - 11.2 K/uL [facility] RBC 3.85 3.63 - 4.92 M/uL [facility] Hemoglobin 11.3(L) 11.9 - 15.5 g/dL [facility] Hematocrit 34.2(L) 36.1 - 44.3 % [facility] MCV 88.9 80.0 - 97.6 fL [facility] MCH 29.5 26.7 - 33.7 pg [facility] MCHC 33.2 32.7 - 35.5 g/dL [facility] RBC Dist Width 13.2 12.3 - 17.0 % [facility] Platelet Count 259 140 - 440 K/uL [facility] MPV 8.6 6.8 - 10.4 fL [facility] Neutrophils % 70.6 38.7 - 74.5 % [facility] Lymphocyte % 23.0 20.0 - 54.3 % [facility] Monocytes % 4.4 4.3 - 13.5 % [facility] Eosinophils % 1.8 0.0 - 6.0 % [facility] Basophil % 0.2 0.0 - 3.0 % [facility] Absolute Neutrophil 8.6(H) 1.8 - 6.6 K/uL [facility] Absolute Lymphocyte 2.8 0.8 - 3.3 K/uL [facility] Absolute Monocyte 0.5 0.2 - 1.2 K/uL [facility] Absolute Eosinophil 0.2 0.0 - 0.5 K/uL [facility] Absolute Basophil 0.0 0.0 - 0.2 K/uL [facility] Nucleated RBC % 0.1 0.0 - 0.4 /100 WBC [facility] Blood 05/28/2024 9:21 AM SEARCH ENGINE MARKETING SPECIALIST 05/28/2024 11:02 AM SEARCH ENGINE MARKETING SPECIALIST Iesha Dunlap MD LAB BLOOD ORDERABLES Final Re sult Performing Organization Address City/[facility]/ZIP Co de Phone Number [facility] * CRP (acute phase) (05/28/2024 9:21 AM SEARCH ENGINE MARKETING SPECIALIST) C-Reactive Protein, Acute 3.1 <5.0 mg/L [facility] Blood 05/28/2024 9:21 AM SEARCH ENGINE MARKETING SPECIALIST 05/28/2024 11:02 AM SEARCH ENGINE MARKETING SPECIALIST Iesha Dunlap MD LAB BLOOD ORDERABLES Final Re sult Performing Organization Address [facility] Co de Phone Number [facility] * (ABNORMAL) Comprehensive metabolic panel (05/28/2024 9:21 AM SEARCH ENGINE MARKETING SPECIALIST) Total Protein 6.1 6.1 - 8.4 g/dL [facility] Albumin 3.2(L) 3.5 - 5.2 g/dL [facility] Calcium 8.3(L) 8.6 - 10.3 mg/dL [facility] BUN 8 7 - 23 mg/dL [facility] Total Bilirubin <0.15(L) 0.20 - 1.40 mg/dL [facility] Comment:Repeated and Verifie d Alk Phos, Total 130(H) 35 - 129 IU/L [facility] AST (SGOT) 30 11 - 47 IU/L [facility] ALT (SGPT) 49 6 - 53 IU/L [facility] Creatinine 0.49(L) 0.60 - 1.10 mg/dL [facility] Sodium 139 135 - 145 mmol/L [facility] Potassium 4.0 3.3 - 5.1 mmol/L [facility] Chloride 107 95 - 107 mmol/L [facility] CO2 Content 21 21 - 29 mmol/L [facility] Glucose 103(H) 64 - 99 mg/dL [facility] Comment: NONFASTING GLUCOSE RANGE = 64-199 mg/dL FASTING GLUCOSE 64 - 99 = NORMAL FASTING GLUCOSE 100 - 125 = IMPAIRED FASTING GLUCOSE FASTING GLUCOSE >=126 = PROVISIONAL DIAGNOSIS OF DIABETES eGFR >90.0 >60.0 mL/min/1.7 3 m2 [facility] Blood 05/28/2024 9:21 AM SEARCH ENGINE MARKETING SPECIALIST 05/28/2024 11:02 AM SEARCH ENGINE MARKETING SPECIALIST Iesha Dunlap MD LAB BLOOD ORDERABLES Final Re sult [facility] * Hepatitis C antibody Blood (12/28/2023 10:22 AM CDT) Hep C Ab Nonreactive Nonreactive Comment:Antibodies to HCV no t detected. Does NOT exclude the possibility of recent exposure to HCV. Current interpretive data was last revised on 21 Blood 12/28/2023 10:2 2 AM CDT 12/28/2023 2:28 PM CDT Federica Dalton MD LAB MICROBIOLOGY - GENERAL ORDERABLES Final Result Performing Organization Address City/[facility] Co de Phone Number [facility] Department [place] [address] * Pap with reflex to High Risk HPV (04/27/2021 3:23 PM SEARCH ENGINE MARKETING SPECIALIST) Pap test 04/27/2021 3:23 PM SEARCH ENGINE MARKETING SPECIALIST 04/27/2021 6:51 PM SEARCH ENGINE MARKETING SPECIALIST Narrative 04/30/2021 1:52 PM SEARCH ENGINE MARKETING SPECIALIST EPIC results best viewed via link to PDF [facility] [place] [address] Note to Patients: This report may contain a detailed description of human tissue sent by a health care provider to the laboratory for pathologic evaluation. The content of this report is essential for diagnosis and may provide important critical findings. This information may be unfamiliar to patients to review without a medical professional present. It is advised that the patient review this report in the presence of a health care provider who can answer questions and explain the details. CYTOPATHOLOGY REPORT FINAL Patient Name: OLGA MALONEY Gender: F : 1995 (Age: 25) Address: [address] [place] [address] Hospital #: [id number] Service: CERTIFIED FLIGHT INSTRUCTOR Location: [facility] Patient Type: [facility] Ref Lab Taken: 04/27/2021 Received: 04/27/2021 Accessioned: 04/28/2021 Reported: 04/30/2021 Physician(s): Federica Dalton M.D. FINAL INTERPRETATION SOURCE OF SPECIMEN: Liquid based Thin Prep pap with Reflex HPV STATEMENT OF ADEQUACY: - Satisfactory for evaluation - Endocervical cells/transformation zone sample present GENERAL CATEGORY: - Negative for squamous intraepithelial lesion or malignancy ml/04/30/2021 13:53 MIAH Baker(ASCP) Report Electronically Reviewed and Signed Out By MIAH Baker(ASCP) 04/30/2021 13:53:04 Cervicovaginal Cytology (Pap Test) Disclaimer: The Pap test is a screening test used to detect cervical cancer and its precursors; it is not a diagnostic procedure. False negative and false positive results do occur. Pap test results should be interpreted in the context of pertinent clinical information and biopsy results as indicated. Gross Description A. Liquid based Thin Prep pap with Reflex HPV: Cervical/vaginal - Screening ThinPrep Clinical Diagnosis and History Last Menstrual Period: 04/09/2021 Contraceptive History: Control Pill The patient is a 25 year old woman with IBD on entyvio, pap qyr X 3. Report Images and scanned documents, if included only viewable in PDF version The performance characteristics of some immunohistochemical stains, in-situ hybridization and fluorescence in-situ hybridization tests and immunophenotyping by flow cytometry cited in this report (if any) were determined by the Surgical Pathology Department at [facility] as part of an ongoing quality assurance clerk program and in compliance with federally mandated regulations drawn from the Clinical Laboratory Improvement Act of 1988 (CLIA '88). Some of these tests rely on the use of analyte specific reagents and are subject to specific labeling requirements by the US Food and Drug Administration. Such diagnostic tests may only be performed in a facility that is certified by the Department of Health and Human Services as a high complexity laboratory under CLIA '88. The FDA has determined that such clearance or approval is not necessary. This test is used for clinical purposes. It should not be regarded as investigational or for research. Nevertheless, federal rules concerning the medical use of analyte specific reagents require that the following disclaimer be attached to the report: This test was developed and its performance characteristics determined by the Surgical Pathology Department of [facility]. It has not been cleared or approved by the U. S. Food and Drug Administration. Federica Dalton MD LAB [facility] [place] Final Result from Last 3 Months or Most Recently Relevant to Health Maintenance [place] [address] GENERIC COPAY ASSIST [facility] [place] [address] [employer] [place] Advance Directives For more information, please contact: [phone] * Full Code (Latest Code Status on File) Date Activated Date Inactivated Comments 07/12/2024 2:23 PM 07/14/2024 5:13 PM * Full Code Date Activated Date Inactivated Comments 07/12/2024 12:26 AM 07/12/2024 2:23 PM Full CPR in case of cardiopulmonary arrest * Full Code Date Activated Date Inactivated Comments 11/26/2022 6:44 AM 11/26/2022 12:45 PM * Full Code Date Activated Date Inactivated Comments 11/30/2021 7:57 AM 11/30/2021 2:03 PM * Full Code Date Activated Date Inactivated Comments 07/21/2020 1:21 PM 07/21/2020 7:17 PM Care Teams Beef Skinner Relationship Specialty Start Date End Date Corby Chappell MD [address] [place] [address] PCP - General 01/29/21 Corby Chappell MD [address] [place] [address] 12/25/20
--- OUTSIDE RECORDS SUMMARY | 2024-08-25 09:27 | XMS_ITS | Encounter Summary ---
Author Organization [facility] Address [address] [place] [address] Phone Care Team Providers Care Business Analyst Project Manager Name Role Phone No, Physician Primary Care Provider [phone] Corby Chappell MD Unavailable [phone] Corby Chappell MD Primary Care Provider [phone] Encounter Details Date Type Department Care Team (Late st Contact Info) Description 12/29/2020 Orders Only [facility] Scanning, Provider Social History Tobacco Use Types Packs/Day Years Used Date Smoking Tobacco: Never Assessed AUDIT-C Answer Date Recorded Q1: How often [...] on file 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 Gender Identity Female 09/19/2019 3:42 PM CDT Sexual Orientation Not on file documented as of this encounter Plan of Treatment Not on file documented as of this encounter Procedures Procedure Name Priority Date/Time Associated Diagnosis Comments SCAN - LABS 12/29/2020 documented in this encounter Results * SCAN - LABS (12/29/2020) us Provider Scanning Final Result documented in this encounter Visit Diagnoses Not on filedocumented in this encounter Additional Health Concerns Infection Onset Date Last Indicated Resolved Time COVID: Suspected 05/23/2024 05/23/2024 05/23/2024 11:22 AM DRUPAL WEB DEVELOPER documented as of this encounter Care Teams Business Analyst Project Manager Relationship Specialty Start Date End Date No, Physician PCP - General 12/25/20 01/28/21 Corby Chappell MD [address] [place] [address] PCP - General 01/29/21 Corby Chappell MD [address] [place] [address] 12/25/20 documented as of this encounter
--- OUTSIDE RECORDS SUMMARY | 2024-08-25 09:27 | XMS_ITS | Encounter Summary ---
Author Organization [facility] Address [address] [place] [address] Phone Care Team Providers Care Business And Financial Counsel Name Role Phone Corby Chappell MD Primary Care Provider [phone] No, Physician Primary Care Provider [phone] Corby Chappell MD Unavailable [phone] Corby Chappell MD Primary Care Provider [phone] Encounter Details Date Type Department Care Team (Late st Contact Info) Description 05/09/2020 Orders Only [facility] Scanning, Provider Social History Tobacco Use Types Packs/Day Years Used Date Smoking Tobacco: Never Smokeless Tobacco: Never Alcohol Use Standard Drinks/Week Comments Yes 0 (1 standard drink = 0.6 oz pur e alcohol) occ Comments Unknown Sex and Gender Information Value Date Recorded Sex Assigned at Not on file 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 Gender Identity Female 09/19/2019 3:42 PM CDT Sexual Orientation Not on file documented as of this encounter Plan of Treatment Not on file documented as of this encounter Procedures Procedure Name Priority Date/Time Associated Diagnosis Comments SCAN - RADIOLOGY/IMAGING 05/09/2020 documented in this encounter Results * SCAN - RADIOLOGY/IMAGING (05/09/2020) Anatomical Region Laterality Modality Other us Provider Scanning Final Result documented in this encounter Visit Diagnoses Not on filedocumented in this encounter Additional Health Concerns Infection Onset Date Last Indicated Resolved Time COVID: Suspected 05/23/2024 05/23/2024 05/23/2024 11:22 AM ACCOUNTING SUPPORT SPECIALIST documented as of this encounter Care Teams Business And Financial Counsel Relationship Specialty Start Date End Date Corby Chappell MD [address] [place] [address] PCP - General 10/01/16 12/24/20 No, Physician PCP - General 12/25/20 01/28/21 Corby Chappell MD [address] [place] [address] PCP - General 01/29/21 Corby Chappell MD [address] [place] [address] 12/25/20 documented as of this encounter
--- OUTSIDE RECORDS SUMMARY | 2024-08-25 09:27 | XMS_ITS | Encounter Summary ---
Author Organization [facility] Address [address] [place] [address] Care Team Providers Care Fisheries Inspector Name Role Phone Corby Chappell MD Unavailable [phone] Corby Chappell MD Primary Care Provider [phone] Encounter Details Date Type Department Care Team (Late st Contact Info) Description 06/29/2024 Results Follow-Up [facility] [address] [address] Trisha Perry MD [facility] [facility] [address] [place] [facility] [address] [place], [place] [id number] Social History Tobacco Use Types Packs/Day Years [...] on one occasion? Less than monthly 05/24/2024 [place] Depression Scale Answer Date Recorded [place] Depression Scale Total 0 01/24/2024 The thought of harming myself has occurred to me . Never 01/24/2024 Personal Safety Answer Date Recorded Have you ever been in or are you currently in a harmful physical or emotional relationship or is someone making you feel afraid or unsafe? 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
--- OUTSIDE RECORDS SUMMARY | 2024-08-25 09:27 | XMS_ITS | Clinical Summary ---
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 (Age: 29) Address: [address] [place], [place] [id number] Hospital #: [id number] Taken:07/12/2024 Received:07/13/2024 Reported: 07/18/2024 Patient Type: [facility] Inpatient Service: Obstetrics Location: [place] [address] Physician(s): DO Federica Crandall M.D. Raymond K. Weber, M.D. Diagnosis: Placenta, vaginal delivery - 417.6 g at 39w0d gestation (appropriate for gestational age) - Trivascular cord and membranes with no histopathologic abnormalities - Villous morphology consistent with stated gestational age alpo/07/18/2024 13:37 By this signature, I attest that [...] and umbilical cord A2-A4 placental disc Jar: [facility]/07/16/2024 15:18 Gross Resident:Alondra Randall M.D. PA(s): Cale [...] Pathology and Flow Cytometry Departments at [facility] as part of an ongoing quality assurance supervisor program and in compliance with federally mandated [...] Pathology and Flow Cytometry Departments of [facility]. It has not been cleared or approved by the U. S. Food and Drug Administration. IMAGES AND SCANNED DOCUMENTS, IF INCLUDED, ONLY VIEWABLE IN PDF VERSION OF REPORT Federica Dalton MD LAB PATHOLOGY ORD ERABLES Final Result PATHOLOGY [facility] 3rd Floor [place], [place] [phone] * [place] AN PROCEDURE PLACEHOLDER (07/12/2024 8:02 AM CDT) Narrative Brain Keita CRNA - 07/12/2024 8:02 AM CDT Brain Keita CRNA 07/12/2024 8:02 AM Epidural Block Patient location: L&D Reason for block: labor analgesia Staff: Supervising provider: Ambar Gan MD Placed by: JACKHAMMER OPERATOR: Brain Keita CRNA Procedure prep: Preprocedure checklist: [...] patient tolerated procedure well with no complications Ambar Gan MD ANESTHESIA ORDERABLES Carrie l [...] BLOOD ORDERABLES Final Result Performing Organization Address City/[facility] Co de Phone Number [facility] [place] [address] * HIV 1/2 Antibody plus p24 Antigen Blood (07/12/2024 12:45 AM CDT) HIV 1/2 ab + p24 ag Nonreactive Nonreactive Comment:Nonreactive for HIV- 1 antigen and HIV-1/HIV-2 antibodies. No laboratory evidence of HIV infection. If acute HIV infection is suspected, consider testing for HIV-1 RNA. Current interpretive data was last revised on 21. Blood 07/12/2024 12:4 5 AM CDT 07/12/2024 1:03 AM CDT us Xiao Lomax MD LAB MICROBIOLOGY - GENERAL ORDERABLES Final Result Performing Organization Address City/[facility]/ZIP Co de Phone Number [facility] [place] [address] * RPR Blood (07/12/2024 12:45 AM CDT) RPR Nonreactive Nonreactive Blood 07/12/2024 12:4 5 AM CDT 07/12/2024 1:02 AM CDT us Xiao Lomax MD LAB MICROBIOLOGY - GENERAL ORDERABLES Final Result Performing Organization Address City/[facility]/ZIP Co de Phone Number [facility] [place] [address] * (ABNORMAL) CBC without differential (07/12/2024 12:45 AM CDT) WBC 14.0(H) 3.8 - 9.9 K/cumm Hgb 11.7(L) 11.9 - 15.5 g/dL [facility] Hct 35.5(L) 35.6 - 45.5 % [facility] Plt 200 150 - 400 K/cumm [facility] MPV 11.5 9.1 - 12.3 fL [facility] RBC 4.02 3.90 - 5.20 M/cumm [facility] MCV 88.3 81.3 - 96.4 fL [facility] MCH 29.1 27.1 - 33.3 pg [facility] MCHC 33.0 32.3 - 35.7 g/dL [facility] RDW CV 14.6 11.1 - 14.9 % [facility] RDW SD 46.9 35.7 - 48.1 fL [facility] NRBC abs 0.00 0.00 - 0.01 K/cumm [facility] Blood 07/12/2024 12:4 5 AM CDT 07/12/2024 1:02 AM CDT us Xiao Lomax MD LAB BLOOD ORDERABLES Final Result [facility] [place] [address] * Type and screen (07/12/2024 12:45 AM CDT) ABO Rh O Positive Deo, indirect Negative [facility] Blood 07/12/2024 12:4 5 AM CDT 07/12/2024 1:02 AM CDT Narrative [facility] - 07/12/2024 1:57 AM CDT Has the patient had Daratumumab or Isatuximab in the past 6 months?->Unknown Xiao Lomax MD LAB BLOOD BANK TEST ORDERA BLES Final Result [facility] [place] [address] * (ABNORMAL) Basic metabolic panel (07/12/2024 12:45 AM CDT) Pathologist [facility] Sodium 136 135 - 145 mmol/L Potassium, pl 4.1 3.3 - 4.9 mmol/L [facility] Chloride 104 97 - 110 mmol/L [facility] CO2 22 22 - 32 mmol/L [facility] Anion gap 10 2 - 15 mmol/L [facility] BUN 11 6 - 25 mg/dL [facility] Creatinine 0.54(L) 0.60 - 1.10 mg/dL [facility] Glucose 89 70 - 199 mg/dL [facility] Comment: Interpretive Data Fasting glucose >/= [...] 2022. Calcium 9.5 8.5 - 10.3 mg/dL [facility] Blood 07/12/2024 12:4 5 AM CDT 07/12/2024 1:02 AM CDT Xiao Lomax MD LAB BLOOD ORDERABLES Final Result [facility] [place] [address] * POCT Fern test, vaginal fluid (07/10/2024 8:50 AM CDT) Fern Test, POC Ferning Absent Ferning Absent Vaginal fluid 07/10/2024 8:5 0 AM CDT us Maria Fernanda Arenas WELL SHOOTER POINT OF CARE TEST ORDERA BLES Final Result * (ABNORMAL) POCT urinalysis (Clinitek) (07/10/2024 7:42 AM CDT) Color, ur, POC Yellow Yellow Clarity, UA, POC Clear Clear [facility] Glucose, ur, POC Negative Negative [facility] Bilirubin, ur, POC Negative Negative [facility] Ketones, ur, POC Negative Negative [facility] Specific gravity, ur, POC 1.015 1.010 - 1.025 [facility] Blood, ur, POC Negative Negative [facility] pH, ur, POC 6.5 [facility] Comment: Interpretive Data Urine pH is affected by diet, medications, systemic acid-base disturbances, and renal tubular function. pH may affect urinary stone formation. For example, urine pH below 6.0 may help reduce the tendency for calcium phosphate stones and pH greater than 6.0 may reduce the tendency for uric acid stone formation. Source: [facility]. Last Revised Date: 04-28-2017 Protein, ur, POC Negative Negative [facility] Urobilinogen, ur, POC 0.2 mg/dL mg/dL [facility] Nitrites, ur, POC Negative Negative [facility] Leukocyte esterase, ur, POC 1+(A) Negative [facility] Urine 07/10/2024 7:42 AM CDT 07/10/2024 7:42 AM CDT Federica Dalton MD LAB POCT ORDERABL ES - DEVICE Final Result [facility] [place] [address] * Group B streptococcal culture Vaginal/Rectal (06/26/2024 12:31 PM CDT) Report Final Report: Negative Vaginal/Rectal 06/26/2024 12 :31 PM CDT 06/26/2024 1:02 PM CDT Narrative [facility] - 06/29/2024 8:20 AM CDT Testing performed by [facility] Microbiology Laboratory ([phone]). us Trisha Perry MD LAB MICROBIOLOGY - GENERA L ORDERABLES Final Result Performing Organization Address City/State/[facility] Co de Phone Number [facility] [place] [address] * US Ob Follow Up (06/04/2024 8:27 AM PHYSICIAN INTERVENTIONAL CARDIOLOGIST) Amniotic fld 14.9 cm Heart Rate 138 bpm Femur Length 6.75 cm Abdominal Circumference 28.81 cm Head Circumference 31.2 cm Occipitofrontal diameter 11.03 cm Biparietal Diameter 8.45 cm Anatomical Region Laterality Modality Abdomen N/A Ultrasound Narrative 06/04/2024 12:16 PM PHYSICIAN INTERVENTIONAL CARDIOLOGIST Indication: growth , ulcerative colitis Exam: Transabdominal [...] (ABNORMAL) POCT urinalysis (Clinitek) (06/02/2024 11:13 PM PHYSICIAN INTERVENTIONAL CARDIOLOGIST) Color, ur, POC Light yellow Clarity, UA, POC Cloudy(A) Clear [facility] Glucose, ur, POC Negative Negative [facility] Bilirubin, ur, POC Negative Negative [facility] Ketones, ur, POC Negative Negative [facility] Specific gravity, ur, POC 1.010 1.010 - 1.025 [facility] Blood, ur, POC Negative Negative [facility] pH, ur, POC 6.0 [facility] Comment: Interpretive Data Urine pH is affected by diet, medications, systemic acid-base disturbances, and renal tubular function. pH may affect urinary stone formation. For example, urine pH below 6.0 may help reduce the tendency for calcium phosphate stones and pH greater than 6.0 may reduce the tendency for uric acid stone formation. Source: [facility] [employer]. Last Revised Date: 04-28-2017 Protein, ur, POC Negative Negative [facility] Urobilinogen, ur, POC 0.2 mg/dL mg/dL [facility] Nitrites, ur, POC Negative Negative [facility] Leukocyte esterase, ur, POC 1+(A) Negative [facility] Urine 06/02/2024 11:1 3 PM PHYSICIAN INTERVENTIONAL CARDIOLOGIST 06/02/2024 11:13 PM PHYSICIAN INTERVENTIONAL CARDIOLOGIST us Xiao Lomax MD LAB POCT ORDERABLES - JAVIER CE Final Result [facility] [place] [address] * (ABNORMAL) CBC with auto differential (05/28/2024 9:21 AM PHYSICIAN INTERVENTIONAL CARDIOLOGIST) White Blood Count 12.1(H) 3.6 - 11.2 [...] [facility] Blood 05/28/2024 9:21 AM PHYSICIAN INTERVENTIONAL CARDIOLOGIST 05/28/2024 11:02 AM PHYSICIAN INTERVENTIONAL CARDIOLOGIST Iesha Dunlap MD LAB BLOOD ORDERABLES Final Re sult [facility] * CRP (acute phase) (05/28/2024 9:21 AM PHYSICIAN INTERVENTIONAL CARDIOLOGIST) C-Reactive Protein, Acute 3.1 <5.0 mg/L [facility] Blood 05/28/2024 9:21 AM PHYSICIAN INTERVENTIONAL CARDIOLOGIST 05/28/2024 11:02 AM PHYSICIAN INTERVENTIONAL CARDIOLOGIST Iesha Dunlap MD LAB BLOOD ORDERABLES Final Re sult [facility] * (ABNORMAL) Comprehensive metabolic panel (05/28/2024 9:21 AM PHYSICIAN INTERVENTIONAL CARDIOLOGIST) Total Protein 6.1 6.1 - 8.4 g/dL [...] [facility] Blood 05/28/2024 9:21 AM PHYSICIAN INTERVENTIONAL CARDIOLOGIST 05/28/2024 11:02 AM PHYSICIAN INTERVENTIONAL CARDIOLOGIST Iesha Dunlap MD LAB BLOOD ORDERABLES Final Re sult [facility] * Hepatitis C antibody Blood (12/28/2023 10:22 AM CDT) Hep C Ab Nonreactive Nonreactive Comment:Antibodies to HCV no t detected. Does NOT exclude the possibility of recent exposure to HCV. Current interpretive data was last revised on 21 Blood 12/28/2023 10:2 2 AM CDT 12/28/2023 2:28 PM CDT Federica Dalton MD LAB MICROBIOLOGY - GENERAL ORDERABLES Final Result [facility] [place] [address] * Pap with reflex to High Risk HPV (04/27/2021 3:23 PM PHYSICIAN INTERVENTIONAL CARDIOLOGIST) Pap test 04/27/2021 3:23 PM PHYSICIAN INTERVENTIONAL CARDIOLOGIST 04/27/2021 6:51 PM PHYSICIAN INTERVENTIONAL CARDIOLOGIST Narrative 04/30/2021 1:52 PM PHYSICIAN INTERVENTIONAL CARDIOLOGIST EPIC results best viewed via link to PDF [facility] Stephany Grossman [facility] [place] [address] Note to Patients: This report may contain [...] Gender: F : 1995 (Age: 25) Address: [address] [place] [address] Hospital #: [id number] Service: BALE PILER Location: [facility] Patient Type: [facility] Ref Lab Taken: 04/27/2021 Received: 04/27/2021 Accessioned: 04/28/2021 Reported: 04/30/2021 Physician(s): Federica Dalton M.D. FINAL INTERPRETATION SOURCE OF SPECIMEN: Liquid based Thin Prep pap with Reflex HPV STATEMENT OF ADEQUACY: - Satisfactory for evaluation - Endocervical cells/transformation zone sample present GENERAL CATEGORY: - Negative for squamous intraepithelial lesion or malignancy 04/30/2021 13:53 MIAH Baker(ASCP) Report Electronically Reviewed and [...] by the Surgical Pathology Department at [facility] as part of an ongoing quality assurance supervisor program and in compliance with federally mandated [...] by the Surgical Pathology Department of [facility]. It has not been cleared or approved by the U. S. Food and Drug Administration. Federica Dalton MD LAB CYTOLOGY [place] Final Result from Last 3 Months or Most Recently Relevant to Health Maintenance Insurance [employer]IC [employer] [place] [employer] [place] For more information, please contact: [phone] * Full Code (Latest Code Status on [...] 1:21 PM 07/21/2020 7:17 PM Care Teams Pigment Pumper Relationship Specialty Start Date End Date Corby Chappell MD [address] [place] [address] PCP - General 01/29/21 Corby Chappell MD [address] [place] [address] 12/25/20
--- OUTSIDE RECORDS SUMMARY | 2024-08-25 09:27 | XMS_ITS | Encounter Summary ---
Author Organization [facility] Address [address] [place] [address] Phone Care Team Providers Care Register In Chancery Name Role Phone Corby Chapplel MD Primary Care Provider [phone] No, Physician Primary Care Provider [phone] Corby Chappell MD Unavailable [phone] Corby Chappell MD Primary Care Provider [phone] Encounter Details Date Type Department Care Team (Late st Contact Info) Description 05/15/2020 Orders Only [facility] Scanning, Provider Social History Tobacco Use Types Packs/Day Years Used Date Smoking Tobacco: Never Smokeless Tobacco: Never Alcohol Use Standard Drinks/Week Comments Yes 0 (1 standard drink = 0.6 oz pur e alcohol) occ Comments Unknown Sex and Gender Information Value Date Recorded Sex Assigned at Not on file Legal Sex Female 4:17 AM AIR GRINDER Gender Identity Female 09/19/2019 3:42 PM CDT Sexual Orientation Not on file documented as of this encounter Plan of Treatment Not on file documented as of this encounter Procedures Procedure Name Priority Date/Time Associated Diagnosis Comments SCAN - LABS 05/15/2020 documented in this encounter Results * SCAN - LABS (05/15/2020) us Provider Scanning Final Result documented in this encounter Visit Diagnoses Not on filedocumented in this encounter Additional Health Concerns Infection Onset Date Last Indicated Resolved Time COVID: Suspected 05/23/2024 05/23/2024 05/23/2024 11:22 AM AIR GRINDER documented as of this encounter Care Teams Register In Chancery Relationship Specialty Start Date End Date Corby Chappell MD [address] [place] [address] PCP - General 10/01/16 12/24/20 No, Physician PCP - General 12/25/20 01/28/21 Corby Chappell MD [address] [place] [address] PCP - General 01/29/21 Corby Chappell MD [address] [place] [address] 12/25/20 documented as of this encounter
--- NOTE | 2024-08-25 09:30 | PC.NURSE ---
In929 Out- 1030 Reason for visit: Painful Latch History: Mother is a here with for painful latch and flange measurement. Labor and delivery was said to be uneventful aside from infant requiring assistance after delivery for respiratory issues. This resolved during their stay at [facility] and infant did not require oxygen therapy after discharge. 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 Frenectomy was performed on 07/26/2024. Additionally, did have significant weight loss after discharge from the hospital which required weekly weight checks by PCP. According to mother, weight issues have since resolved and PCP is no longer concerned about weight gain. Weight gain has been WNL since frenectomy was performed. Infant History: Mother had appropriate PNC during . Infant was delivered vaginally and required oxygen therapy after delivery per mother. Infant weight was 6lbs 11oz - her last weight was 7lbs 10oz. Infant feeds at the breast 4-5 times daily with formula and pumped breast milk supplementation from time to time. Infants output WNL - voids 8-10x daily with 1-2 stools daily. Observations: : Mother works well with her infant, she is able to confidently place infant to breast and latch infant. Mother states that when she latches she does experience pinching that is painful. Upon assessment, appears to have her lower lip tucked in. Demonstrated how to break infants latch without pain to mother and assisted mother with latching infant deeper. This was done by rolling infants bottom lip out with the base of mothers nipple and then bringing infants head up and over the top of the nipple to create a asymmetrical latch. Mother states that she felt immediate relief with this latch. was able to maintain latch in the cross cradle position for approx. 12 minutes. Mother then switched to the right breast (which is noted to be the breast/nippe that is more tender). Mother attempted to latch infant independently in the cross cradle position on the right breast. Upon assessing, infant had her top lip tucked which was causing mother pain. Mother broke the latch in the way that was taught and re-latched infant using the method demonstrated above and was able to latch optimally without pain. Pumping: Mother states that she is confused about when she should be pumping and how to move forward with pumping and . She states that she can not figure out when she needs to pump and when she needs to breastfeed. Explained to mother that she does not need to pump if she is exclusively infant. Explained that when feedings at the breast are skipped by using pumped breast milk and/or formula, she should pump for those missed feedings. Explained that she should be stimulating the breast either by nursing or pumping every 3-4 hours. Mother had concerns about leaving for extended periods of time and storing breast milk. Education was provided (with handout) on milk storage. Mother is using an [employer] handsfree breastpump with size 21mm flange. She states that sometimes pumping can be painful. Today we measured her for her correct size flange which should be a size 24mm with her breast pump. Additionally, she has a hand pump at home that is [employer]ula brand which would require a 27mm flange. Her nipples measured at 22mm. Explained to mother that the pain from pumping and nipple pain could be caused by incorrect flange size. weight: 6lb 11oz Lowest weight: 6lb 0oz Last weight: 7lb 10oz Follow up plans: Follow up call will be completed on Tuesday08/27/2024 and infant will follow up with PCP for regularly scheduled visit.
== END 2024-08-25 09:25 | disposition home or self-care (01) ==
LOC: ANHOBOP 09:25
PROVIDERS: PCP Family Medicine; Visit Provider Pediatrics
DX: O92.79 Other disorders of lactation (principal)
CPT/HCPCS: 99212; G0463